=== PATIENT | male | born 1990 ===

== ENCOUNTER 2021-05-05 16:12 | Emergency (ER) | payer SELFPAY ==
[2021-05-05 16:40] VITALS: BP 110/75; PULSE 79; RESP 18; TEMP 37.1; O2SAT 97; BMI 23.6
--- NOTE | 2021-05-05 17:23 | XRR_ITS ---
PROCEDURE INFORMATION: Exam: XR Left Finger(s) Exam date and time: 05/05/2021 5:23 PM Age: 31 years old Clinical indication: Injury or trauma; Finger; Left; Injury date: 05/05/21; Injury details: Chainsaw injury to right thumb; Patient HX: Laceration to right thumb today via chainsaw accident; Additional info: Chainsaw lac to thumb. TECHNIQUE: Imaging protocol: XR Left fingers. Views: Minimum 2 views. COMPARISON: No relevant prior studies available. FINDINGS: Bones/joints: Comminuted distal tuft fracture of the thumb. Joint spaces are normal. Soft tissues: Soft tissue deformity and swelling of the thumb. XR/XR finger LT min 2V [id number] IMPRESSION: Comminuted displaced distal phalangeal tuft fracture of the thumb.
--- NOTE | 2021-05-05 17:35 | W.ED.WOUNDLC ---
Documented by User: Kin Mustafa MD 05/05/21 20:36 HPI - Wound/Laceration General: Chief Complaint: Wound/Laceration Stated Complaint: THUMB VS CHAINSAW Time Seen by Provider: 05/05/21 17:15 History of Present Illness: HPI narrative: The patient is a 31-year-old male who comes to the ER after left thumb injury to [place]. He was cutting some wood and set the chainsaw down and when he went to pick it back up his left thumb touched the blade lacerating his thumb. He said he had significant amounts of bleeding on scene. Here bleeding appears to be controlled. Last tetanus shot a year ago. The wound is of significant size and is at the base of the nail does go nearly circumferentially around the thumb. Sensation intact distal to injury. Context: accidental Associated symptoms: Reports no associated symptoms Review of Systems General: Reports: 10 or more systems reviewed and unremarkable except in HPI and below Const: Denies: fatigue Eyes: Denies: change in vision, blurry vision or eye redness ENMT: Denies: throat pain, swelling of lips/tongue, ear or mastoid pain or nasal congestion Card: Denies: chest pain, palpitations, irregular heart rhythm, edema, dyspnea on exertion or orthopnea Resp: Denies: dyspnea, productive cough or non-productive cough GI: Denies: abdominal pain, diarrhea or GI cramping : Denies: flank pain, urinary frequency or urinary urgency Musc: Denies: neck pain, back pain, extremity pain, joint pain, joint redness, limited range of motion or muscle weakness Skin/Breast: Reports: other (Laceration); Denies: rash, pruritus, erythema, skin pain or skin tenderness Neuro: Denies: headache(s), numbness in extremities, weakness in extremities, sensory changes, difficulty walking, dizziness, confusion or Slurred speech present Psych: Denies: anxiety or depression Endo: Denies: polyuria All/Imm: Denies: urticaria, throat swelling or tongue swelling Physical Exam Const: COMMON NORMALS: no acute distress, average body habitus, patient oriented x3, no limitations, healthy appearing, alert and well nourished GENERAL APPEARANCE: cooperative, comfortable, well kempt and well developed ORIENTATION/CONSCIOUSNESS: Yes awake, Yes oriented to person, Yes oriented to place and Yes oriented to time HENMT: COMMON NORMALS: normocephalic, external ears normal and Normal external nose present HEAD & SCALP: normal to inspection and normocephalic NOSE: Normal external nose present EXTERNAL EAR: Yes external ears normal MOUTH: Normal oral and palatal mucosa present THROAT: posterior oropharynx normal Eye: COMMON NORMALS: Equal, round and reactive pupils present and EOMs intact bilaterally GENERAL EYE: appearance normal, both eyes and all related structures PUPIL: Yes Equal, round and reactive pupils present Neck/C-Spine: COMMON NORMALS: full ROM, no lymphadenopathy, no meningeal signs and no JVD GENERAL: Yes normal visual inspection Lymph: LYMPHATIC: no lymphadenopathy noted Chest: COMMONS NORMALS: normal inspection of the chest and normal palpation of entire chest wall Resp: COMMON NORMALS: normal respiratory effort, No retractions, No use of accessory muscles, clear to auscultation bilaterally and percussion normal EFFORT & INSPECTION: Yes able to speak in complete sentences AUSCULTATION: clear to auscultation bilaterally PERCUSSION: percussion normal Cardio: COMMON NORMALS: no JVD, regular rate, regular rhythm, S1 normal heart sound present, S2 normal heart sound present and Peripheral pulses 2+ throughout RATE: regular rate RHYTHM: regular rhythm HEART SOUNDS: S1 normal heart sound present and S2 normal heart sound present PERIPHERAL PULSES: Peripheral pulses 2+ throughout GI: COMMON NORMALS: Normal to inspection, nondistended, normoactive bowel sounds present, Soft to palpation, non-tender and no masses INSPECTION: Yes normal to inspection PALPATION: Yes Soft to palpation : COMMON NORMALS: Yes no CVA tenderness BLADDER/KIDNEY EXAM: Yes no CVA tenderness Back/Pelvis: COMMON NORMALS: no CVA tenderness, thoracic and lumbar spine normal to inspection, no thoracic nor lumbar tenderness and thoraco-lumbar ROM normal Extremity: COMMON NORMALS: normal to inspection, full ROM, capillary refill normal, no joint enlargement and no pedal edema GENERAL: Yes normal exam except as noted Neuro: COMMON NORMALS: patient oriented x3, CN's II-XII intact bilaterally, moves all extremities, no focal motor deficits, no sensory deficits noted and gait normal SENSORIUM/ORIENTATION: Yes alert, Yes oriented to person, Yes oriented to place and Yes oriented to time MENINGEAL SIGNS: Yes no meningeal signs Psych: COMMON NORMALS: mental status grossly normal, Normal thought process present, cooperative, normal affect and speech normal APPEARANCE: Yes well kempt ATTITUDE: Yes calm SPEECH: Yes normal speech THOUGHT PROCESS: Normal thought process present Skin: COMMON NORMALS: no rashes or lesions noted NARRATIVE SKIN EXAM: Laceration to left thumb starting at the base of the nail going circumferentially around that part of the thumb. Neuro intact to fingertips. Crusted blood on skin proximal and distal to the wound. No active bleeding of significance at this time. GENERAL SKIN EXAM: no rashes or lesions noted Procedures Laceration Laceration 1: Site: other (left thumb) Side (If applicable): left Size (cm): 3 Description: irregular Depth: simple, single layer Local Anesthetic: lidocaine 1% Amount of anesthesia used (mL): 1 Pre-repair: irrigated extensively Skin layer closed with: other (ethilon) Size (cm): 4-0 Number of sutures: 4 Course Vital Signs: Vital signs: Vital Signs Temperature 98.8 F 05/05/21 16:40 Pulse Rate 79 05/05/21 16:40 Respiratory Rate 18 05/05/21 18:08 Blood Pressure 110/75 05/05/21 16:40 Pulse Oximetry 96 05/05/21 18:08 MDM - Wound/Laceration MDM Narrative: Medical decision making narrative: JEREMIAS Tamayo performed a digital block. I discussed with Mildred Cee nurse practitioner hand surgeon to Dr. Ion White. There is likely neurovascular intact at the tip of the finger however it is difficult to tell with his skin color and nail opaque. The tip is certainly not much darker than the rest of his thumb and does not appear dusky. He will follow-up at [facility] in [facility] at 11 AM. N.p.o. at midnight. He will be discharged with Keflex and [place] for pain. Follow-up tomorrow morning. ER at anytime with worsening symptoms Discharge Plan Discharge Patient Disposition: Home Clinical Impression: Laceration Condition: Stable Prescriptions: New cephalexin 500 mg capsule 500 mg PO BID 7 Days Qty: 14 RF: 0 hydrocodone-acetaminophen 5-325 mg tablet 1 tab PO Q6H PRN (Reason: pain) Qty: 14 RF: 0 Discharge Orders: Discharge ED (Routine); Ordered 05/05/21 Ordered By: Kin Mustafa Discharge Diet: Advance as tolerated Discharge Activity: Limit activity as instructed Patient Instructions: Finger Laceration (ED), Opioid Safety Activity Restrictions/Additional Instructions: You have lacerated your thumb with a chainsaw and even broken the tip of your thumb bone. I have placed 4 sutures to gently hold it together however please show up to the [facility] in [facility]. [facility] [place] [facility] [place], [place], [address] Phone number is [phone]. Please do not eat anything after midnight and bring a bull driver as you may be sedated after the procedure and need a ride home. I discussed you with nurse practitioner Mildred Cee who works with Dr. Ion White. They are aware you are coming and please arrive at 11 AM. Coding Level of Care Code ED Environmental Communications Specialist for Chg Fwd Exam Comprehensive Documented by User: MARTHA Morales 05/05/21 20:38 HPI - Wound/Laceration General: Chief Complaint: Wound/Laceration Stated Complaint: THUMB VS CHAINSAW Time Seen by Provider: 05/05/21 17:15 Procedures Nerve Block Nerve Block 1: Time out performed: Yes Local Anesthetic: lidocaine 2% Amount of anesthesia used (mL): 10 Side: left Nerve Blocks: digital (thumb) Procedure Successful: Yes Patient Tolerated Procedure: well Complications: none Course Vital Signs: Vital signs: Vital Signs Temperature 98.8 F 05/05/21 16:40 Pulse Rate 79 05/05/21 16:40 Respiratory Rate 18 05/05/21 18:08 Blood Pressure 110/75 05/05/21 16:40 Pulse Oximetry 96 05/05/21 18:08 MDM - Wound/Laceration MDM Narrative: Medical decision making narrative: I went in and performed a digital block on patient's left thumb to help with pain. I was not involved in any other aspect of patient's care. Patient tolerated digital nerve block well and it was effective. Discharge Plan Discharge Patient Disposition: Home Clinical Impression: Laceration Condition: Stable Prescriptions: New cephalexin 500 mg capsule 500 mg PO BID 7 Days Qty: 14 RF: 0 hydrocodone-acetaminophen 5-325 mg tablet 1 tab PO Q6H PRN (Reason: pain) Qty: 14 RF: 0 Discharge Orders: Discharge ED (Routine); Ordered 05/05/21 Ordered By: Kin Mustafa Discharge Diet: Advance as tolerated Discharge Activity: Limit activity as instructed Patient Instructions: Finger Laceration (ED), Opioid Safety Activity Restrictions/Additional Instructions: You have lacerated your thumb with a chainsaw and even broken the tip of your thumb bone. I have placed 4 sutures to gently hold it together however please show up to the [facility] in [facility]. The address is [address] [place] [address], [address] Phone number is [phone]. Please do not eat anything after midnight and bring a bull driver as you may be sedated after the procedure and need a ride home. I discussed you with nurse practitioner Mildred Cee who works with Dr. Ion White. They are aware you are coming and please arrive at 11 AM. Coding Level of Care Code ED Environmental Communications Specialist for [place] Fwd Exam Comprehensive
[2021-05-05] MEDS: cephALEXin 500 mg Capsule PO (18:06)
[2021-05-05 18:08] VITALS: RESP 18; O2SAT 96
[2021-05-05] MEDS: morphine 4 mg/mL SDV 1 mL IM (18:08)
[2021-05-05] MEDS: lidocaine 2% INJ 20 mL INJECTION (18:13)
[2021-05-05] MEDS: HYDROcodone-acetaminophen 5-325 mg Tablet 2 TAB PO (21:29)
[2021-05-05 21:37] VITALS: BP 116/72; PULSE 75; RESP 18; O2SAT 98
== END 2021-05-05 21:39 | disposition home or self-care (01) ==
PROVIDERS: Emergency Provider Family Medicine
DX: S61.012A Laceration without foreign body of left thumb without damage to nail, initial encounter (principal); W29.3XXA Contact with powered garden and outdoor hand tools and machinery, initial encounter
CPT/HCPCS: 12002; 73140; 96372; 99283; J2270